=== PATIENT | female | born 1950 | race Caucasian/White ===

== ENCOUNTER 2018-04-01 12:33 | Emergency (ER) | payer MEDICARE, SELFPAY ==
[2018-04-01 12:45] VITALS: BP 156/72; PULSE 73; RESP 18; TEMP 36.3; O2SAT 98
--- NOTE | 2018-04-01 12:56 | ED.ABDPAIN ---
HPI - Abdominal Pain <JESSICA Cassidy - Last Filed: 04/01/18 21:49> General Chief Complaint: Abdominal Pain Stated Complaint: IBS, DIZZINESS,HEART GOING CRAZY,CLAMY Time Seen by Provider: 04/01/18 12:56 Source: patient Mode of arrival: ambulatory Limitations: no limitations History of Present Illness HPI narrative: 67-year-old female here for complaint of multiple vague symptoms that have been happening over the past week. She reports that she has chronic abdominal pain over the past year. She complains of having right upper quadrant pain at this time which is consistent with her chronic pain. She also reports that she has had feelings of malaise over the past several days as well. She also reports having some lightheadedness. She also states she had feeling that her heart was racing at times. She denies any fevers however she felt like she may have had some chills. She denies any chest pain. She does report having some nausea periodically. No urinary symptoms. She does report having a headache on and off as well. She does report she has a history of migraines. She is ambulatory into the emergency room. She denies any stressors relievers of her pain. She states that if she is up and about and moving around for a couple hours that it does bring on symptoms of feeling tired. Last bowel movement was earlier this morning was unremarkable. No shortness of breath. MD complaint: abdominal pain Related Data Home Medications Medication Instructions Recorded Confirmed venlafaxine [Effexor XR] 37.5 mg PO QDAY #0 02/26/17 04/01/18 Allergies Allergy/AdvReac Type Severity Reaction Status Date / Time Sulfa (Sulfonamide Allergy Unknown Unverified 11/26/17 11:46 Antibiotics) [SULFA (SULFONAMIDE ANTIBIOTICS)] Review of Systems <JESSICA Cassidy - Last Filed: 04/01/18 21:49> Constitutional Reports chills, Denies fatigue, Denies fever(s), Reports headache(s), Denies lethargy, Reports malaise and Reports weakness Eyes Denies change in vision, Denies eye discharge, Denies irritation and Denies loss of vision ENT Ears, Nose, Mouth, and Throat: Denies change in voice, Reports headache(s), Denies neck pain and Denies sore throat Cardiovascular Reports rapid heart rate, Denies dyspnea and Denies dyspnea on exertion Respiratory Denies cough, Denies dyspnea, Denies dyspnea on exertion and Denies wheezing Gastrointestinal Gastrointestinal: Reports abdominal pain Genitourinary Denies hematuria, Denies flank pain, Denies urinary incontinence and Denies urinary urgency Musculoskeletal Denies neck pain Integumentary/Breasts Denies pruritus, Denies erythema, Denies rash and Denies wounds Neurologic Denies confusion, Reports headache(s), Denies loss of vision and Reports weakness Psychiatric Denies anxiety, Denies confusion, Denies depression, Denies homicidal ideation and Denies suicidal ideation Endocrine Denies fatigue and Denies flushing Hematologic/Lymphatic Denies easy bruising Allergic/Immunologic Denies wheezing Exam <JESSICA Cassidy - Last Filed: 04/01/18 21:49> Initial Vital Signs Initial Vital Signs: Vital Signs Temperature 97.4 F L 04/01/18 12:45 Pulse Rate 73 04/01/18 12:45 Respiratory Rate 18 04/01/18 12:45 Blood Pressure 156/72 H 04/01/18 12:45 Pulse Oximetry 98 04/01/18 12:45 Const General: cooperative and well developed Nutritional Appearance: well nourished Orientation: alert, awake, oriented x3 and not confused [facility] Head: normocephalic and atraumatic Ears: external ears normal and TM's normal bilaterally Nose: nasal discharge Face and sinus: sinuses nontender, face symmetric, no sinus tenderness and No dry mucous membranes Mouth: oral mucosae normal and moist mucous membranes Teeth and gingiva: dentition normal Throat: tonsils normal and uvula midline Eyes Conjunctivae: conjunctivae normal Sclera: sclerae normal Pupils: PERRL EOM: EOM intact bilaterally Resp Effort & Inspection: normal respiratory effort, able to speak in complete sentences, no respiratory distress and no use of accessory muscles Auscultation: clear to auscultation bilaterally, no rales, no rhonchi and no wheezes Cardio Rate: regular rate Rhythm: regular rhythm Heart Sounds: no click, no gallops, no murmurs and no rubs Pulses: normal peripheral pulses GI Inspection: non-distended Palpation: soft, no hepatosplenomegaly, No guarding, No pulsatile mass and tender Auscultation: normal bowel sounds Other: Tenderness to right upper quadrant Neuro General: alert, oriented x3, gait normal and no focal motor deficits Speech: speech normal <Levy Carrero DO - Last Filed: 04/02/18 12:57> Initial Vital Signs Initial Vital Signs: Vital Signs Temperature 97.4 F L 04/01/18 12:45 Pulse Rate 73 04/01/18 12:45 Respiratory Rate 18 04/01/18 12:45 Blood Pressure 156/72 H 04/01/18 12:45 Pulse Oximetry 98 04/01/18 12:45 Course <JESSICA Cassidy - Last Filed: 04/01/18 21:49> Orders Ordered: Discontinued Medications Diphenhydramine HCl (Benadryl) 25 mg IV NOW ONE Stop: 04/01/18 13:14 Last Admin: 04/01/18 14:17 Dose: 25 mg Sodium Chloride (Normal Saline 0.9%) 1,000 mls @ 1,000 mls/hr IV BOLUS ONE Stop: 04/01/18 14:12 Last Infusion: 04/01/18 16:15 Dose: 0 mls/hr Admin: 04/01/18 14:20 Dose: 1,000 mls/hr Ketorolac Tromethamine (Toradol) 30 mg IV NOW ONE Stop: 04/01/18 13:14 Last Admin: 04/01/18 14:18 Dose: 30 mg Prochlorperazine (Compazine) 10 mg IV NOW ONE Stop: 04/01/18 13:14 Last Admin: 04/01/18 14:19 Dose: 10 mg Vital Signs - 8 hr 04/01/18 14:03 04/01/18 14:19 04/01/18 15:57 Pulse Rate 65 66 65 Respiratory Rate 14 14 Blood Pressure 118/62 Blood Pressure [Left Arm] 118/62 128/67 H Pulse Oximetry 94 100 <Levy Carrero DO - Last Filed: 04/02/18 12:57> Orders Ordered: Discontinued Medications Diphenhydramine HCl (Benadryl) 25 mg IV NOW ONE Stop: 04/01/18 13:14 Last Admin: 04/01/18 14:17 Dose: 25 mg Sodium Chloride (Normal Saline 0.9%) 1,000 mls @ 1,000 mls/hr IV BOLUS ONE Stop: 04/01/18 14:12 Last Infusion: 04/01/18 16:15 Dose: 0 mls/hr Admin: 04/01/18 14:20 Dose: 1,000 mls/hr Ketorolac Tromethamine (Toradol) 30 mg IV NOW ONE Stop: 04/01/18 13:14 Last Admin: 04/01/18 14:18 Dose: 30 mg Prochlorperazine (Compazine) 10 mg IV NOW ONE Stop: 04/01/18 13:14 Last Admin: 04/01/18 14:19 Dose: 10 mg Vital Signs - 8 hr 04/01/18 14:03 04/01/18 14:19 04/01/18 15:57 Pulse Rate 65 66 65 Respiratory Rate 14 14 Blood Pressure 118/62 Blood Pressure [Left Arm] 118/62 128/67 H Pulse Oximetry 94 100 MDM - Abdominal Pain <JESSICA Cassidy - Last Filed: 04/01/18 21:49> Lab Data Result diagrams: 04/01/18 13:50 04/01/18 13:50 Lab Results 04/01/18 04/01/18 04/01/18 Range/Units 13:50 13:50 13:50 WBC (4.5-11.0) X10^3/uL RBC (4.0-5.2) X10^6/uL Hgb (12.0-16.0) g/dL Hct (36-46) % MCV (80-100) fL MCH (26-34) PG MCHC (30-36) % RDW (11.6-14.8) % Plt Count (150-400) X10^3/uL Neut % (Auto) (50-75) % Lymph % (Auto) (25-40) % [place] % (Auto) (3-14) % Eos % (Auto) (2-4) % Baso % (Auto) (0-2) % Neut # (Auto) (9380-8768) /uL D-Dimer < 200 (<230) ng/mL Sodium (137-145) mmol/L Potassium (3.4-5.1) mmol/L Chloride (98-107) mmol/L Carbon Dioxide (22-32) mmol/L BUN (7-17) mg/dL Creatinine (0.52-1.04) mg/dL Estimated GFR (>60) mL/min BUN/Creatinine Ratio (6-22) Glucose (80-110) mg/dL Calcium (8.4-10.2) mg/dL Total Bilirubin (0.2-1.3) mg/dL AST (14-36) IU/L ALT (9-52) IU/L Alkaline Phosphatase (38-126) U/L Troponin I < 0.012 (0.01-0.034) ng/mL Total Protein (6.3-8.2) g/dL Albumin (3.5-5.0) g/dL Globulin (1.7-4.1) g/dL Albumin/Globulin Ratio (1.0-2.8) Lipase 152 (23-300) U/L 04/01/18 04/01/18 Range/Units 13:50 13:50 WBC 6.0 (4.5-11.0) X10^3/uL RBC 4.73 (4.0-5.2) X10^6/uL Hgb 14.0 (12.0-16.0) g/dL Hct 41.4 (36-46) % MCV 87.5 (80-100) fL MCH 29.6 (26-34) PG MCHC 33.9 (30-36) % RDW 13.0 (11.6-14.8) % Plt Count 277 (150-400) X10^3/uL Neut % (Auto) 54.6 (50-75) % Lymph % (Auto) 35.8 (25-40) % [place] % (Auto) 6.8 (3-14) % Eos % (Auto) 2.1 (2-4) % Baso % (Auto) 0.7 (0-2) % Neut # (Auto) 3300 (1957-1795) /uL D-Dimer (<230) ng/mL Sodium 140 (137-145) mmol/L Potassium 3.9 (3.4-5.1) mmol/L Chloride 103 (98-107) mmol/L Carbon Dioxide 27 (22-32) mmol/L BUN 27 H (7-17) mg/dL Creatinine 0.70 (0.52-1.04) mg/dL Estimated GFR > 60.0 (>60) mL/min BUN/Creatinine Ratio 38.6 H (6-22) Glucose 128 H (80-110) mg/dL Calcium 10.8 H (8.4-10.2) mg/dL Total Bilirubin 0.3 (0.2-1.3) mg/dL AST 19 (14-36) IU/L ALT 15 (9-52) IU/L Alkaline Phosphatase 68 (38-126) U/L Troponin I (0.01-0.034) ng/mL Total Protein 7.2 (6.3-8.2) g/dL Albumin 4.4 (3.5-5.0) g/dL Globulin 2.8 (1.7-4.1) g/dL Albumin/Globulin Ratio 1.6 (1.0-2.8) Lipase (23-300) U/L Point of care testing: Urine Dip Bedside Urine Glucose Negative Bedside Urine Bilirubin - Negative Bedside Urine Ketone - Negative Urine Specific [place] 1.030 Bedside Urine Occult Blood - Negative Bedside Urine pH 6.0 Bedside Urine Protein - Negative Bedside Urine Urobilinogen - Negative Bedside Urine Nitrite - Negative Bedside Urine Leukocytes - Negative Esterase Imaging Data Chest x-ray: Radiologist's impression: PROCEDURE: XR CHEST 1V INDICATIONS: States feels like her heart has been racing TECHNIQUE: One view of the chest was acquired. COMPARISON: None. FINDINGS: Surgical changes and devices: Postoperative changes are present related to prior lower cervical fusion. Clips within the right upper quadrant are suggestive of a previous cholecystectomy. Lungs and pleura: No pleural effusions or pneumothorax. Lungs are clear. Mediastinum: Mediastinal contours appear normal. Heart size is normal. There appears to be early aortic atherosclerosis. Bones and chest wall: No suspicious bony lesions. Degenerative changes of the spine and shoulders are not well characterized. Overlying soft tissues appear unremarkable. IMPRESSION: Unremarkable chest radiograph. No acute cardiopulmonary process is evident. Dictated by: Pancho Ambrocio M.D. on 04/01/2018 at 12:44 Approved by: Pancho Ambrocio M.D. on 04/01/2018 at 12:50 CT scan - head: Radiologist's impression: PROCEDURE: CT HEAD/BRAIN WO CON INDICATIONS: Headache for the last several days TECHNIQUE: Noncontrast 4.5 mm thick angled axial sections acquired from the foramen magnum to the vertex, with coronal and sagittal reformats. For radiation dose reduction, the following was used: automated exposure control, adjustment of mA and/or kV according to patient size. COMPARISON: [facility], CT, BRAIN W/O CONTRAST, 06/17/2012, 11:19. FINDINGS: Image quality: Excellent. CSF spaces: Basal cisterns are patent. No extra-axial fluid collections. Ventricles are normal in size and shape except for stable encephalomalacia along the inferior right frontal lobe present also in 2011. Brain: No midline shift. No intracranial masses or hemorrhage. Nichole-white matter interface is normal. Skull and face: Calvarium and visualized facial bones are intact, without suspicious lesions. Sinuses: Visualized sinuses and mastoids are clear. IMPRESSION: No change in encephalomalacia along the under surface of the right frontal lobe, present in May of 2012. No intracranial hemorrhage or inflammation suspected. Dictated by: Dinesh So M.D. on 04/01/2018 at 15:42 Approved by: Dinesh So M.D. on 04/01/2018 at 15:44 CT scan - abdomen: Radiologist's impression: Signed Patient: Cielo Singletary MR#: [id number] : 1950 Acct:[id number] Age/Sex: 67 / F Date of Service: 04/01/18 Loc: ED Accession Number: [id number] Procedure: CT abdomen pelvis w con Ordering Provider: Byron López PROCEDURE: CT ABDOMEN PELVIS W CON INDICATIONS: Right upper quadrant pain last several weeks TECHNIQUE: After the administration of intravenous contrast, 5 mm thick sections acquired from the diaphragm to the symphysis. 5 mm coronal and sagittal reformats were acquired. For radiation dose reduction, the following was used: automated exposure control, adjustment of mA and/or kV according to patient size. COMPARISON: [facility], CT, ABDOMEN WITH CONTRAST, 09/19/2016, 8:46. FINDINGS: Image quality: Excellent. ABDOMEN: Lung bases: Lung bases are clear except for previously identified minimal valvular scarring anterior right lower lung. Heart size is normal. Solid organs: Liver is normal in size and enhancement. Gallbladder has been previously resected. Biliary system is non dilated. Pancreas enhances normally. Spleen is normal in size and enhancement. No adrenal nodules. Kidneys demonstrate normal size and enhancement, without hydronephrosis. There is a dominant left exophytic lateral renal cyst measuring up to 8.4 x 6.5 cm, simple in appearance. Peritoneum and bowel: Bowel loops demonstrate normal wall thickness and caliber. No free fluid or air. Nodes and vessels: No retroperitoneal or mesenteric adenopathy by size criteria. Aorta and inferior vena cava are normal in size. Miscellaneous: No ventral hernias. PELVIS: Genitourinary: Bladder wall thickness is normal. Miscellaneous: No inguinal hernias or adenopathy. Bones: No suspicious bony lesions. No vertebral body compression fractures. Quite severe degenerative disc disease along the lumbosacral spine at all levels, with an exophytic disc protrusion on the left at the posterolateral aspect of the old one-L2 disc annulus, without progression. IMPRESSION: Prior cholecystectomy. Source of persistent right upper quadrant pain is not seen. No biliary distention is found. Moderately severe to severe degenerative disc disease and facet osteoarthritis along the lumbosacral spine with an asymmetric left-sided posterolateral disc protrusion at the L1-L2 disc level, impinging on the left posterolateral recess and neural foramen and likely impinging directly on the course of the left L1 nerve root. This was previously present. Dictated by: Dinesh So M.D. on 04/01/2018 at 15:44 Approved by: Dinesh So M.D. on 04/01/2018 at 15:51 ECG Data Interpretation: EKG shows normal sinus rhythm with no ST elevation or depression. No ectopy. Ventricular rate of 65. Pr interval 159. QRS duration of 90. QT 371 MDM Narrative Medical decision making narrative: CBC Chem panel were obtained were unremarkable. D-dimer was negative. Cardiac enzymes were negative. EKG shows sinus rhythm with no ST elevation or depression. Chest x-ray was obtained was negative for any acute findings. Head CT was obtained and was negative for any acute findings. CT the abdomen was obtained was negative for any acute findings. Vital signs were normal patient no acute distress. Suspect that her abdominal pain is due to IBS. [id number] Tylenol as needed for any discomfort. Recommend follow with primary care provider next week for further evaluation. If continued symptoms recommend gastroenterology referral. <Levy Carrero DO - Last Filed: 04/02/18 12:57> Lab Data Lab Results 04/01/18 04/01/18 04/01/18 Range/Units 13:50 13:50 13:50 WBC (4.5-11.0) X10^3/uL RBC (4.0-5.2) X10^6/uL Hgb (12.0-16.0) g/dL Hct (36-46) % MCV (80-100) fL MCH (26-34) PG MCHC (30-36) % RDW (11.6-14.8) % Plt Count (150-400) X10^3/uL Neut % (Auto) (50-75) % Lymph % (Auto) (25-40) % [place] % (Auto) (3-14) % Eos % (Auto) (2-4) % Baso % (Auto) (0-2) % Neut # (Auto) (8227-2066) /uL D-Dimer < 200 (<230) ng/mL Sodium (137-145) mmol/L Potassium (3.4-5.1) mmol/L Chloride (98-107) mmol/L Carbon Dioxide (22-32) mmol/L BUN (7-17) mg/dL Creatinine (0.52-1.04) mg/dL Estimated GFR (>60) mL/min BUN/Creatinine Ratio (6-22) Glucose (80-110) mg/dL Calcium (8.4-10.2) mg/dL Total Bilirubin (0.2-1.3) mg/dL AST (14-36) IU/L ALT (9-52) IU/L Alkaline Phosphatase (38-126) U/L Troponin I < 0.012 (0.01-0.034) ng/mL Total Protein (6.3-8.2) g/dL Albumin (3.5-5.0) g/dL Globulin (1.7-4.1) g/dL Albumin/Globulin Ratio (1.0-2.8) Lipase 152 (23-300) U/L 04/01/18 04/01/18 Range/Units 13:50 13:50 WBC 6.0 (4.5-11.0) X10^3/uL RBC 4.73 (4.0-5.2) X10^6/uL Hgb 14.0 (12.0-16.0) g/dL Hct 41.4 (36-46) % MCV 87.5 (80-100) fL MCH 29.6 (26-34) PG MCHC 33.9 (30-36) % RDW 13.0 (11.6-14.8) % Plt Count 277 (150-400) X10^3/uL Neut % (Auto) 54.6 (50-75) % Lymph % (Auto) 35.8 (25-40) % [place] % (Auto) 6.8 (3-14) % Eos % (Auto) 2.1 (2-4) % Baso % (Auto) 0.7 (0-2) % Neut # (Auto) 3300 (0823-3032) /uL D-Dimer (<230) ng/mL Sodium 140 (137-145) mmol/L Potassium 3.9 (3.4-5.1) mmol/L Chloride 103 (98-107) mmol/L Carbon Dioxide 27 (22-32) mmol/L BUN 27 H (7-17) mg/dL Creatinine 0.70 (0.52-1.04) mg/dL Estimated GFR > 60.0 (>60) mL/min BUN/Creatinine Ratio 38.6 H (6-22) Glucose 128 H (80-110) mg/dL Calcium 10.8 H (8.4-10.2) mg/dL Total Bilirubin 0.3 (0.2-1.3) mg/dL AST 19 (14-36) IU/L ALT 15 (9-52) IU/L Alkaline Phosphatase 68 (38-126) U/L Troponin I (0.01-0.034) ng/mL Total Protein 7.2 (6.3-8.2) g/dL Albumin 4.4 (3.5-5.0) g/dL Globulin 2.8 (1.7-4.1) g/dL Albumin/Globulin Ratio 1.6 (1.0-2.8) Lipase (23-300) U/L Point of care testing: Urine Dip Bedside Urine Glucose Negative Bedside Urine Bilirubin - Negative Bedside Urine Ketone - Negative Urine Specific [place] 1.030 Bedside Urine Occult Blood - Negative Bedside Urine pH 6.0 Bedside Urine Protein - Negative Bedside Urine Urobilinogen - Negative Bedside Urine Nitrite - Negative Bedside Urine Leukocytes - Negative Esterase Discharge Plan Departure Patient Disposition: Home Clinical Impression: Abdominal pain Discharge Date/Time: 04/01/18 16:23 Interventions: ED Discharge Assessment Last Done: 04/01/18 16:23 Instructions: DI for Abdominal Pain-Adult Activity Restrictions/Additional Instructions: Laboratory results and imaging today were unremarkable. Vital signs today were normal. EKG today was normal. Suspect that your symptoms is due to a chronic abdominal pain secondary to IBS recommend following up with primary care provider next week for further evaluation if continued symptoms recommend referral to Gastroenterology. For any worsening symptoms return to the emergency room. Use [id number] Tylenol as needed for any discomfort. Prescriptions: No Action venlafaxine [Effexor XR] 37.5 MG capsule,extended release 24hr 37.5 mg PO QDAY Qty: 0 RF: 0 Referrals: Destini Flanagan PA-C [Primary Care Provider] - <Levy Carrero DO - Last Filed: 04/02/18 12:57> Cosign ED Attending Chikaature Attestation: I was immediately available in the department for consultation. Documentation has been reviewed. I agree with assessment and plan.
--- NOTE | 2018-04-01 13:14 | DI.RAD.S_ITS ---
PROCEDURE: XR CHEST 1V INDICATIONS: States feels like her heart has been racing TECHNIQUE: One view of the chest was acquired. COMPARISON: None. FINDINGS: Surgical changes and devices: Postoperative changes are present related to prior lower cervical fusion. Clips within the right upper quadrant are suggestive of a previous cholecystectomy. Lungs and pleura: No pleural effusions or pneumothorax. Lungs are clear. Mediastinum: Mediastinal contours appear normal. Heart size is normal. There appears to be early aortic atherosclerosis. Bones and chest wall: No suspicious bony lesions. Degenerative changes of the spine and shoulders are not well characterized. Overlying soft tissues appear unremarkable. IMPRESSION: Unremarkable chest radiograph. No acute cardiopulmonary process is evident. Dictated by: Pancho Ambrocio M.D. on 04/01/2018 at 12:44 Approved by: Pancho Ambrocio M.D. on 04/01/2018 at 12:50
--- NOTE | 2018-04-01 13:15 | DI.CT.S_ITS ---
PROCEDURE: CT HEAD/BRAIN WO CON INDICATIONS: Headache for the last several days TECHNIQUE: Noncontrast 4.5 mm thick angled axial sections acquired from the foramen magnum to the vertex, with coronal and sagittal reformats. For radiation dose reduction, the following was used: automated exposure control, adjustment of mA and/or kV according to patient size. COMPARISON: [facility], CT, BRAIN W/O CONTRAST, 06/17/2012, 11:19. FINDINGS: Image quality: Excellent. CSF spaces: Basal cisterns are patent. No extra-axial fluid collections. Ventricles are normal in size and shape except for stable encephalomalacia along the inferior right frontal lobe present also in 2011. Brain: No midline shift. No intracranial masses or hemorrhage. Nichole-white matter interface is normal. Skull and face: Calvarium and visualized facial bones are intact, without suspicious lesions. Sinuses: Visualized sinuses and mastoids are clear. IMPRESSION: No change in encephalomalacia along the under surface of the right frontal lobe, present in May of 2012. No intracranial hemorrhage or inflammation suspected. Dictated by: Dinesh So M.D. on 04/01/2018 at 15:42 Approved by: Dinesh So M.D. on 04/01/2018 at 15:44
--- NOTE | 2018-04-01 13:16 | DI.CT.S_ITS ---
PROCEDURE: CT ABDOMEN PELVIS W CON INDICATIONS: Right upper quadrant pain last several weeks TECHNIQUE: After the administration of intravenous contrast, 5 mm thick sections acquired from the diaphragm to the symphysis. 5 mm coronal and sagittal reformats were acquired. For radiation dose reduction, the following was used: automated exposure control, adjustment of mA and/or kV according to patient size. COMPARISON: [facility], CT, ABDOMEN WITH CONTRAST, 09/19/2016, 8:46. FINDINGS: Image quality: Excellent. ABDOMEN: Lung bases: Lung bases are clear except for previously identified minimal valvular scarring anterior right lower lung. Heart size is normal. Solid organs: Liver is normal in size and enhancement. Gallbladder has been previously resected. Biliary system is non dilated. Pancreas enhances normally. Spleen is normal in size and enhancement. No adrenal nodules. Kidneys demonstrate normal size and enhancement, without hydronephrosis. There is a dominant left exophytic lateral renal cyst measuring up to 8.4 x 6.5 cm, simple in appearance. Peritoneum and bowel: Bowel loops demonstrate normal wall thickness and caliber. No free fluid or air. Nodes and vessels: No retroperitoneal or mesenteric adenopathy by size criteria. Aorta and inferior vena cava are normal in size. Miscellaneous: No ventral hernias. PELVIS: Genitourinary: Bladder wall thickness is normal. Miscellaneous: No inguinal hernias or adenopathy. Bones: No suspicious bony lesions. No vertebral body compression fractures. Quite severe degenerative disc disease along the lumbosacral spine at all levels, with an exophytic disc protrusion on the left at the posterolateral aspect of the old one-L2 disc annulus, without progression. IMPRESSION: Prior cholecystectomy. Source of persistent right upper quadrant pain is not seen. No biliary distention is found. Moderately severe to severe degenerative disc disease and facet osteoarthritis along the lumbosacral spine with an asymmetric left-sided posterolateral disc protrusion at the L1-L2 disc level, impinging on the left posterolateral recess and neural foramen and likely impinging directly on the course of the left L1 nerve root. This was previously present. Dictated by: Dinesh So M.D. on 04/01/2018 at 15:44 Approved by: Dinesh So M.D. on 04/01/2018 at 15:51
[2018-04-01 14:03] VITALS: BP 118/62; PULSE 65; RESP 14; O2SAT 94
[2018-04-01 14:11] LABS: D Dimer < 200 ng/mL (<230)
[2018-04-01 14:12] LABS: Lipase 152 U/L (23-300)
[2018-04-01] MEDS: diphenhydrAMINE 50 MG/ML VIAL 25 MG IV (14:17)
[2018-04-01] MEDS: KETOROLAC 60 MG/2 ML VIAL 30 MG IV (14:18)
[2018-04-01 14:19] VITALS: BP 118/62; PULSE 66
[2018-04-01] MEDS: PROCHLORPERAZINE 10 MG/2 ML VIAL IV (14:19)
[2018-04-01] MEDS: SODIUM CHLORIDE 0.9% 1,000 ML 1000 ML IV (14:20)
[2018-04-01 14:25] LABS: Troponin I < 0.012 ng/mL (0.01-0.034)
[2018-04-01 15:08] LABS: Add Manual Diff / Slide Review NO; Basophils Percent Auto 0.7 % (0-2); Eosinophils Percent Auto 2.1 % (2-4); Hematocrit 41.4 % (36-46); Lymphocytes Percent Auto 35.8 % (25-40); Mean Corpuscular HGB Conc 33.9 % (30-36); Mean Corpuscular Hemoglobin 29.6 PG (26-34); Mean Corpuscular Volume 87.5 fL (80-100); Monocytes Percent Auto 6.8 % (3-14); Neutrophils Absolute Auto 3300 /uL (3000-5900); Neutrophils Percent Auto 54.6 % (50-75); Platelet Count 277 X10^3/uL (150-400); Red Blood Cell Count 4.73 X10^6/uL (4.0-5.2)
[2018-04-01 15:13] LABS: Alanine Aminotransferase 15 IU/L (9-52); Albumin 4.4 g/dL (3.5-5.0); Albumin Globulin Ratio 1.6 (1.0-2.8); Alkaline Phosphatase 68 U/L (38-126); Aspartate Aminotransferase 19 IU/L (14-36); BUN Creatinine Ratio 38.6 (6-22); Bilirubin Total 0.3 mg/dL (0.2-1.3); Blood Urea Nitrogen 27 mg/dL (7-17); Calcium 10.8 mg/dL (8.4-10.2); Carbon Dioxide 27 mmol/L (22-32); Chloride 103 mmol/L (98-107); Estimated Glomerular Filt Rate > 60.0 mL/min (>60); Globulin 2.8 g/dL (1.7-4.1); Glucose 128 mg/dL (80-110); HEMOLYSIS < 15 (0-50); Potassium 3.9 mmol/L (3.4-5.1); Sodium 140 mmol/L (137-145); Total Protein 7.2 g/dL (6.3-8.2)
[2018-04-01 15:57] VITALS: BP 128/67; PULSE 65; RESP 14; O2SAT 100
== END 2018-04-01 16:23 | disposition home or self-care (01) ==
PROVIDERS: Emergency Provider Nurse Practitioner Family; Family Provider Physician Assistant; PCP Physician Assistant
DX: R10.9 Unspecified abdominal pain (principal); R53.1 Weakness; R51 Headache
CPT/HCPCS: 36591; 70450; 71045; 74177; 80053; 81003; 83690; 84484; 85025; 85379; 93005; 93010; 96361; 96374; 96375; 99283; 99285; J0780; J1200; J1885; Q9967

== ENCOUNTER → 2018-12-04 14:22 | Outpatient (CLI) | payer MEDICARE, SELFPAY ==
--- NOTE | 2018-12-04 | DI.RAD.S_ITS ---
PROCEDURE: XR FOOT RT MIN 3V INDICATIONS: BUNION RIGHT FOOT TECHNIQUE: 3 views of the foot were acquired. COMPARISON: None. FINDINGS: Bones: No fractures or dislocations. No suspicious bony lesions. Prior osteotomy has been performed at the base of the first proximal phalanx, and bunionectomy also appears to have been performed at the medial first metatarsal head. Soft tissues: No tibiotalar joint effusion. Achilles tendon appears normal. IMPRESSION: No trauma found. Podiatry related findings as discussed with normal alignment established. Dictated by: Dinesh So M.D. on 12/04/2018 at 15:08 Approved by: Dinesh So M.D. on 12/04/2018 at 15:09
== END ==
PROVIDERS: Family Provider Physician Assistant; PCP Physician Assistant; Visit Provider Physician Assistant
DX: M21.611 Bunion of right foot (principal)
CPT/HCPCS: 73630